=== PATIENT | female | born 1980 | race Hispanic/Latino ===

== ENCOUNTER 2017-09-06 09:26 | Inpatient (IN) | payer OTHER ==
[2017-09-08 11:11] LABS: HEMATOCRIT 35.8 % (36-48); MEAN CORPUSCULAR HEMOGLOBIN 30.4 pg (27.0-33.0); MEAN CORPUSCULAR HGB CONC 33.8 g/dL (32.0-36.0); PLATELET COUNT (AUTO) 245 K/uL (130-400); RED BLOOD CELL COUNT(AUTO) 3.98 MIL/uL (4.00-5.50); RED CELL DISTRIBUTION WIDTH 14.9 % (11.0-15.5); WHITE BLOOD COUNT (AUTO) 11.2 K/uL (4.8-10.8)
[2017-09-09] MEDS ORDERED: CEFAZOLIN SODIUM 1 GM VIAL IVP SCH (06:15)
[2017-09-09] MEDS ORDERED: CALDOLOR 800MG+NS 250ML 250 ML IV SCH (06:30)
[2017-09-09] MEDS ORDERED: OXYTOCIN 10 USP UNITS/ML ONE ×2 (07:38→10:50)
[2017-09-09] MEDS ORDERED: DURAMORPH PF1 MG/ML 10ML AMP IV ONE (08:16)
[2017-09-09] MEDS ORDERED: SENSORCAINE/DEXT/PF 0.75% 2ML AMP IJ ONE ×2 (08:18→08:23)
[2017-09-09 08:25] LABS: HEPATITIS Bs ANTIGEN SCREEN P Negative (Negative)
[2017-09-09] MEDS: CEFAZOLIN SODIUM 1 GM VIAL IVP SCH (08:25)
[2017-09-09] MEDS ORDERED: CEFAZOLIN SODIUM 1 GM VIAL IVP ONE (08:35)
[2017-09-09] MEDS ORDERED: FENTANYL CITRATE PF 50 MCG/1 ML 2ML VIAL ONE (09:14)
[2017-09-09] MEDS ORDERED: PHENYLEPHRINE HCL 10 MG/ML 1ML VIAL IV ONE (10:25)
[2017-09-09] MEDS ORDERED: ONDANSETRON HCL 4 MG/2 ML VIAL ONE (10:25)
[2017-09-09] MEDS ORDERED: OXYTOCIN 10 UNIT/1ML 10ML VIAL ONE (10:25)
[2017-09-09] MEDS ORDERED: OXYTOCIN-LR 20 UNITS/1000 ML 1,000 ML IV PRN (10:40)
[2017-09-09] MEDS ORDERED: CEFAZOLIN 3GM /D5W 100ML 100 ML IV SCH ×2 (10:45→15:18)
[2017-09-09] MEDS ORDERED: DEXTROSE 5 %-0.45 % NACL 1,000 ML IV PRN (10:45)
[2017-09-09] MEDS ORDERED: LANOLIN 30GM OINTMENT TP PRN (10:45)
[2017-09-09] MEDS ORDERED: SODIUM CHLORIDE 0.9% 10 ML VIAL IVP PRN (10:45)
[2017-09-09] MEDS ORDERED: ACETAMINOPHEN-CODEINE 300/30MG TAB PO PRN (10:45)
[2017-09-09] MEDS ORDERED: DIPHENHYDRAMINE HCL 25 MG CAPSULE PO PRN (10:45)
[2017-09-09] MEDS ORDERED: BISACODYL 10 MG SUPP.RECT RC PRN (10:45)
[2017-09-09] MEDS ORDERED: LACTATED RINGERS 1000ML 1,000 ML IV ONE (10:49)
[2017-09-09 12:12] VITALS: BP 135/86
[2017-09-09] MEDS ORDERED: MORPHINE SULFATE 2 MG/ML 1ML SYG IVP PRN (12:15)
[2017-09-09] MEDS ORDERED: NALOXONE HCL 0.4 MG/1 ML ML IVP PRN (12:15)
[2017-09-09] MEDS ORDERED: METOCLOPRAMIDE 10 MG/2 ML VIAL IVP PRN (12:15)
[2017-09-09] MEDS ORDERED: DiphenhydrAMINE HCL 50 MG/ML VIAL IVP PRN (12:15)
[2017-09-09] MEDS ORDERED: PROMETHAZINE HCL 25 MG/ML 1ML AMPULE IM PRN (12:15)
[2017-09-09] MEDS ORDERED: HYDROCODONE/ACETAMINOPHEN 5/325 MG TAB PO PRN ×2 (12:15)
[2017-09-09] MEDS ORDERED: ONDANSETRON HCL 4 MG/2 ML VIAL IVP PRN ×2 (12:15)
[2017-09-09] MEDS ORDERED: ONDANSETRON HCL 4 MG/2 ML 8 MG in SODIUM CHLORIDE 0.9% 50 ML IVP NR (12:15)
[2017-09-09] MEDS ORDERED: EPHEDRINE SULFATE 50 MG/ML AMPULE IVP PRN (12:15)
[2017-09-09] MEDS ORDERED: PNV1TABL17 PO (12:20)
[2017-09-09] MEDS ORDERED: CEFAZOLIN SODIUM 1 GM VIAL IV SCH (15:15)
[2017-09-09 15:33] VITALS: BP 133/73
[2017-09-09] MEDS: IBUPROFEN 800 MG TAB PO SCH (18:28)
[2017-09-09] MEDS: CALDOLOR 800MG+NS 250ML 250 ML IV SCH (19:20)
[2017-09-09 19:27] VITALS: BP 144/80
[2017-09-09] MEDS: SIMETHICONE 80 MG TAB.CHEW PO PRN (22:25)
[2017-09-09] MEDS: DOCUSATE SODIUM 100 MG CAP PO SCH (22:25)
[2017-09-10] VITALS (7 sets, daily range): BP systolic 120–151; BP diastolic 68–89
[2017-09-10] MEDS: CEFAZOLIN SODIUM 1 GM VIAL IVP SCH (01:35)
[2017-09-10] MEDS: IBUPROFEN 800 MG TAB PO SCH ×3 (02:45→18:38)
[2017-09-10] MEDS: CALDOLOR 800MG+NS 250ML 250 ML IV SCH (02:47)
[2017-09-10 06:41] LABS: HEMATOCRIT 31.3 % (36-48); MEAN CORPUSCULAR HEMOGLOBIN 30.6 pg (27.0-33.0); MEAN CORPUSCULAR HGB CONC 33.8 g/dL (32.0-36.0); MEAN CORPUSCULAR VOLUME 90.5 fL (79-99); PLATELET COUNT (AUTO) 203 K/uL (130-400); RED BLOOD CELL COUNT(AUTO) 3.46 MIL/uL (4.00-5.50); WHITE BLOOD COUNT (AUTO) 14.2 K/uL (4.8-10.8)
[2017-09-10] MEDS: DOCUSATE SODIUM 100 MG CAP PO SCH ×2 (09:31→21:37)
[2017-09-10] MEDS: SIMETHICONE 80 MG TAB.CHEW PO PRN ×4 (09:31→21:37)
[2017-09-10] MEDS: DIPH,PERTUSS(ACELL),TET VAC/PF 0.5 ML VIAL IM SCH (10:29)
[2017-09-11] MEDS: IBUPROFEN 800 MG TAB PO SCH ×2 (02:38→11:10)
[2017-09-11 04:06] VITALS: BP 147/88
[2017-09-11 07:21] VITALS: BP 137/75
[2017-09-11] MEDS: DOCUSATE SODIUM 100 MG CAP PO SCH (09:19)
[2017-09-11] MEDS: SIMETHICONE 80 MG TAB.CHEW PO PRN ×2 (09:19→16:40)
[2017-09-11] MEDS: DIPH,PERTUSS(ACELL),TET VAC/PF 0.5 ML VIAL IM SCH (09:23)
[2017-09-11 11:18] VITALS: BP 143/85
[2017-09-11 15:34] VITALS: BP 148/86
== END 2017-09-11 17:05 | disposition home or self-care (01) | DRG 766 ==
LOC: EDSTATUS 09-08 12:30 → LDH 09-09 05:48 → WSH 09-09 12:15
PROC: 0UB70ZZ Excision of Bilateral Fallopian Tubes, Open Approach (ICD-10-PCS; 2017-09-09)
PROC: 10D00Z1 Extraction of Products of Conception, Low, Open Approach (ICD-10-PCS; principal; 2017-09-09 08:00)
DX: O34.211 Maternal care for low transverse scar from previous cesarean delivery (principal); O77.0 Labor and delivery complicated by meconium in amniotic fluid; Z37.0 Single live birth; Z30.2 Encounter for sterilization; Z3A.40 40 weeks gestation of pregnancy; Z90.49 Acquired absence of other specified parts of digestive tract
CPT/HCPCS: 36415; 59510; 85027; 86592; 86850; 86900; 86901; 87340; 88302; 90715; A4344; A4606; J0690; J1741; J2274; J2370; J2405; J2590; J3010; J3490; J7120